=== PATIENT | male | born 1985 | race Caucasian/White ===

== ENCOUNTER 2018-01-23 23:34 | Emergency (ER) | END 2018-01-24 02:31 | disposition home or self-care (01) ==

== ENCOUNTER 2018-04-12 18:34 | Emergency (ER) | END 2018-04-13 00:10 | disposition home or self-care (01) ==

== ENCOUNTER 2018-12-30 20:41 | Emergency (ER) | payer OTHER ==
[~2018-12-30] VITALS: Ht 188 cm; Wt 105.3 kg
[~2018-12-30 20:41] MED LIST: IBUP-1542 PO; MAGN296S40 PO; PSYL660P13 PO
[2018-12-30 20:50] VITALS: Ht 188 cm; Wt 105.3 kg
[2018-12-30] MEDS ORDERED: ONDANSETRON (ODT) 4 MG TAB ODT STA (23:21)
--- NOTE | 2018-12-31 00:36 | ERD ---
ER Documentation Chief Complaint Chief Complaint cough x2 months. cp when he coughs hard. HPI 33-year-old male presents with complaint of cough for the past 2 months. In addition he states that his stomach hurts when he coughs. Cough is described as a dry cough. Has not taken any treatments. He also states he is got some postnasal drip. States he is also had some episodes of vomiting. vomitus is nonbilious and nonbloody. Denies any fevers, chills, diarrhea diarrhea, chest pain, shortness of breath, wheezing. ROS All systems reviewed and are negative except as per history of present illness. Medications Home Meds Active Scripts Ondansetron (Ondansetron Odt) 8 Mg Tab.rapdis, 8 MG PO Q6H PRN for NAUSEA AND/OR VOMITING, #10 TAB Prov:HERMELINDA RIOJAS 12/31/18 Loratadine* (Loratadine*) 10 Mg Tablet, 10 MG PO DAILY for allergies, #30 TAB Prov:HERMELINDA RIOJAS 12/31/18 Promethazine HCl/Codeine (Prometh-Codein 6.25-10 mg/5 ml) 5 Ml Syrup, 5 ML PO Q4 for cough, #4 OZ Prov:HERMELINDA RIOJAS 12/31/18 Ibuprofen* (Motrin*) 600 Mg Tab, 600 MG PO Q6, #30 TAB Prov:FANTASMA,LEN 04/12/18 Psyllium Husk/Aspartame (Metamucil [facility] Powder) 660 Gm Powder, 3.4 GM PO QAM for 30 Days, #660 GM Prov:FANTASMA,LEN 04/12/18 Magnesium Citrate* (Magnesium Citrate*) 296 Ml Solution, 296 ML PO ONCE, #1 BOTTLE Prov:FANTASMA,LEN 04/12/18 Ibuprofen* (Motrin*) 600 Mg Tab, 600 MG PO Q6, #30 TAB Prov:HERMELINDA YANEZ PA-C 01/24/18 Allergies Allergies: Coded Allergies: No Known Allergy (Unverified , 12/30/18) PMhx/Soc History of Surgery: Yes (R INGUINAL HERNIA) Anesthesia Reaction: No Hx Alcohol Use: No Hx Substance Use: No Hx Tobacco Use: No Smoking Status: Never smoker FmHx Family History: No diabetes, No coronary disease, No other Physical Exam Vitals Vital Signs Date Temp Pulse Resp B/P (MAP) Pulse Ox O2 O2 Flow FiO2 Time Delivery Rate 12/30/18 98.2 112 22 145/92 96 20:50 (109) Physical Exam Const: No acute distress Head: Atraumatic Eyes: Normal Conjunctiva ENT: Normal External Ears, Nose and Mouth. Neck: Full range of motion. No meningismus. Resp: Clear to auscultation bilaterally Cardio: Regular rate and rhythm, no murmurs Abd: Soft, non tender, non distended. Normal bowel sounds Skin: No petechiae or rashes Back: No midline or flank tenderness Ext: No cyanosis, or edema Neur: Awake and alert Psych: Normal Mood and Affect Results 24 hrs Current Medications Medications Dose Sig/Chase Start Time Status Last (Trade) Ordered Route PRN Stop Time Admin Dose Reason Admin Ondansetron 8 mg ONCE STAT 12/30/18 DC 12/30/18 HCl (Zofran ODT 23:21 12/30/18 23:28 Odt) 23:23 Procedures/MDM DIAGNOSTIC IMAGING REPORT Patient: ORLANDO UGALDE : 1985 Age: 33 Sex: M MR #: [id number] DOS: 12/30/18 2321 Ordering MD: HERMELINDA RIOJAS Location: [facility] Room/Bed: PROCEDURE: XR Chest. CLINICAL INDICATION: Cough for 2 months. TECHNIQUE: AP view of the chest was obtained. COMPARISON: 01/24/2018 FINDINGS: The cardiomediastinal silhouette is within normal limits. The lungs are clear. No signs of pleural fluid or pneumothorax are seen. The osseous structures and soft tissues are unremarkable. IMPRESSION: 1. No evidence for acute cardiopulmonary disease. RPTAT: HGAS .Dwaine Chambers MD, Date Time Electronically viewed and signed by .Dwaine Chambers MD, on 12/31/2018 00:35 .S/ CC: HERMELINDA RIOJAS [id number] EKG: Rate/Rhythm: Normal Sinus Rhythm QRS, ST, T-waves: No changes consistent w/ acute ischemia Impression: No evidence of ischemia or arrhythmia MDM: Chest x-ray was performed and results within normal limits. Patient's most likely suffering from bronchitis. I have low suspicion for strep throat based on history and exam findings, as well as patient not meeting centor criteria for rapid strep testing. I have low suspicion for bacterial sinusitis, pneumonia, tuberculosis, meningitis, pneumothorax, PE, aspirated foreign body, respiratory distress, acute heart failure or other life threatening etiology based on patient history and exam findings. Most likely etiology is viral URI and no further tests are necessary. Patient given rx for promethazine with codeine as well as Zofran for vomiting.. Patient also given loratadine for complaint of postnasal drip. Patient advised to rest and stay well hydrated. Patient discharged with strict ER precautions. Patient advised to follow up with PMD. All questions answered at discharge. Departure Diagnosis: Primary Impression: Cough Condition: Stable HERMELINDA RIOJAS Dec 31, 2018 00:36
[2018-12-31] MEDS ORDERED: PROM5SYR2 PO (00:42)
[2018-12-31] MEDS ORDERED: ONDA8TAB14 PO (00:43)
[2018-12-31] MEDS ORDERED: LORA10TA3 PO (00:43)
[2018-12-31 00:57] VITALS: BP 128/73; PULSE 73; RESP 18
== END 2018-12-31 00:58 | disposition home or self-care (01) ==
LOC: FTE 20:41
DX: R05 Cough (principal); R07.9 Chest pain, unspecified
CPT/HCPCS: 71045; 93005; Z7502; Z7610